=== PATIENT | female | born 1980 | race African-American/Black ===

== ENCOUNTER 2017-12-30 15:12 | Emergency (ER) | payer BC, OTHER ==
[~2017-12-30] VITALS: Ht 170.2 cm; Wt 98.4 kg
[2017-12-30 15:27] VITALS: BP 161/99
[2017-12-30 15:51] LABS: INFLUENZA A PATIENT NEGATIVE (NEGATIVE); INFLUENZA B PATIENT NEGATIVE (NEGATIVE)
[2017-12-30] MEDS ORDERED: OSEL75CA PO (16:03)
[2017-12-30] MEDS ORDERED: GUAI118L13 PO (16:03)
--- NOTE | 2017-12-30 16:05 | PHYS DOC ---
General Chief Complaint: FLU SYMPTOM Stated Complaint: COUGH, FEVER, BODYACHES Time Seen by MD: 15:22 Source: patient Exam Limitations: no limitations Problems: History of Present Illness Initial Comments Complaining of flulike symptoms. Patient states that since yesterday she's had a dry cough and intermittent fever chills and body aches. Her son was treated for influenza last week and she is thinking she is now infected. She denies sore throat or difficulty swallowing no chest pain or trouble breathing no nausea vomiting or diarrhea and no other focal pain complaints. She is febrile on arrival 103.2F heart rate initially 125 bpm appears to be related to fever. She denies chest pain or trouble breathing no leg swelling or history of clotting. Timing/Duration: 24 hours Severity: severe Modifying Factors: worse with movement, improves with rest Associated Symptoms: cough, fever/chills, headaches, malaise, other Allergies: Coded Allergies: levofloxacin (Verified Allergy, Intermediate, RASH, 12/30/17) Past Medical History Medical History: other (anxiety, migraines, lupus) Surgical History: no surgical history Social History Smoker: non-smoker Alcohol: none Drugs: none Review of Systems Constitutional: see HPI EENTM: nose congestion, throat pain, denies throat swelling Respiratory: cough, denies shortness of breath, denies wheezing Cardiovascular: denies chest pain, denies palpitations, denies syncope Gastrointestinal: denies abdominal pain, denies diarrhea, denies nausea, denies vomiting Musculoskeletal: denies back pain, denies joint swelling, muscle pain, denies neck pain Psychiatric/Neurological: headache, denies numbness, denies paresthesia, denies weakness Hematologic/Lymphatic: denies blood clots, denies easy bleeding, denies easy bruising Physical Exam General Appearance: mild distress (ill appearing) Eyes: bilateral eye normal inspection, bilateral eye PERRL, bilateral eye EOMI Ear, Nose, Throat: hearing grossly normal, normal ENT inspection, normal pharynx Neck: non-tender, supple Respiratory: normal breath sounds, no respiratory distress Cardiovascular: normal peripheral pulses, regular rate, rhythm (heart rate normalized after resting for a short time and fever control) Gastrointestinal: non tender, soft Back: no CVA tenderness, no vertebral tenderness Extremities: non-tender, normal inspection, no calf tenderness Neurologic/Psychiatric: knowledge architect II-XII nml as tested, no motor/sensory deficits, alert, normal mood/affect, oriented x 3 Skin: normal color, warm/dry Orders, Labs, Meds Influenza studies negative Due to the false-negative rate, patient's symptom complex and recent exposure I will go ahead and prescribed Tamiflu at this time. I discussed [id number] prescription medications as well as oral hydration and activity modification. I discussed signs and symptoms to monitor as well as indications for urgent return to the department. The patient's questions were answered to her satisfaction and she expressed agreement and understanding of treatment plan as below. Departure Time of Disposition: 16:03 Disposition: 01 HOME, SELF-CARE Diagnosis: Febrile Illness Condition: GOOD Patient Instructions: Fever, Adult, [id number] Additional Instructions: Rapid influenza testing was negative in the department however due to your recent exposure will treat with Tamiflu. Rest, no strenuous activity. Aggressive hydration with Gatorade or water. [id number] Tylenol and ibuprofen as needed. Prescription: Tamiflu, guaifenesin with codeine syrup Follow-up with your doctor in 7-10 days for recheck if not better. Return to ED with new or changing symptoms. VIRIDIANA CASTREJON DO Dec 30, 2017 16:05
[2017-12-30] MEDS ORDERED: IBUPROFEN 600 MG TABLET. PO ONE (16:30)
[2017-12-30] MEDS ORDERED: guaiFENesin/CODEINE 100mg/10mg 5 ML LIQUID PO ONE (16:30)
== END 2017-12-30 16:20 | disposition home or self-care (01) ==
LOC: ER 15:12
DX: R50.9 Fever, unspecified (principal); M79.1 Myalgia; G43.909 Migraine, unspecified, not intractable, without status migrainosus; Z88.1 Allergy status to other antibiotic agents
CPT/HCPCS: 87804; 99284

== ENCOUNTER 2018-07-14 14:30 | Emergency (ER) | payer OTHER ==
[~2018-07-14] VITALS: Ht 167.6 cm; Wt 100.7 kg
[~2018-07-14 14:30] MED LIST: GUAI118L13 PO; OSEL75CA PO
--- NOTE | 2018-07-14 14:43 | EKG ---
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
--- NOTE | 2018-07-14 14:54 | PHYS DOC ---
Past History Past Medical History: Anxiety, Migraines, Other Past Surgical History: No Surgical History Alcohol Use: None Drug Use: None Adult General Chief Complaint Chief Complaint: CHEST WALL PAIN HPI HPI Patient is a 37 year old female who presents with chest pain. Patient has a history of hypertension, diabetes, lupus and GERD who's had 2-3 days of substernal chest pain with radiation to the back. Patient states that she did see her primary care earlier this week for upper abdominal pain and was diagnosed with GI issues and started on Nexium. Patient states that this pain is somewhat different in that is somewhat higher with radiation to the back. She denies any nausea, vomiting or diarrhea and has no other acute complaints at this time. Patient states she is almost started for her high blood pressure and has been on it for years. Patient does see a lupus specialist every 6 months and states that there are no acute issues regarding that diagnosis and that she is on Plaquenil for that. Review of Systems Review of Systems Constitutional: Denies fever or chills [] Eyes: Denies change in visual acuity, redness, or eye pain [] HENT: Denies nasal congestion or sore throat [] Respiratory: Denies cough or shortness of breath [] Cardiovascular: No additional information not addressed in HPI [] GI: Denies abdominal pain, nausea, vomiting, bloody stools or diarrhea [] : Denies dysuria or hematuria [] Musculoskeletal: Denies back pain or joint pain [] Integument: Denies rash or skin lesions [] Neurologic: Denies headache, focal weakness or sensory changes [] Endocrine: Denies polyuria or polydipsia [] All other systems were reviewed and found to be within normal limits, except as documented in this note. Allergies Allergies Allergies Coded Allergies Type Severity Reaction Last Updated Verified levofloxacin Allergy Intermediate RASH 12/30/17 Yes Physical Exam Physical Exam Constitutional: Well developed, well nourished, no acute distress, non-toxic appearance. [] HENT: Normocephalic, atraumatic, bilateral external ears normal, oropharynx moist, no oral exudates, nose normal. [] Eyes: PERRLA, EOMI, conjunctiva normal, no discharge. [] Neck: Normal range of motion, no tenderness, supple, no stridor. [] Cardiovascular:Heart rate regular rhythm, no murmur [] Lungs & Thorax: Bilateral breath sounds clear to auscultation [] Abdomen: Bowel sounds normal, soft, no tenderness, no masses, no pulsatile masses. [] Skin: Warm, dry, no erythema, no rash. [] Back: No tenderness, no CVA tenderness. [] Extremities: No tenderness, no cyanosis, no clubbing, ROM intact, no edema. [] Neurologic: Alert and oriented X 3, normal motor function, normal sensory function, no focal deficits noted. [] Psychologic: Affect normal, judgement normal, mood normal. [] EKG EKG Sinus tach at a rate of 120[] Radiology/Procedures Radiology/Procedures [] Course & Med Decision Making Course & Med Decision Making Pertinent Labs and Imaging studies reviewed. (See chart for details) Patient with marked improvement with GI cocktail and clonidine. She is somewhat anxious but easily calms down with conversation [] Dragon Disclaimer Dragon Disclaimer This electronic medical record was generated, in whole or in part, using a voice recognition dictation system. Departure Departure: Impression: Primary Impression: Nonspecific chest pain Additional Impressions: Hypertension GERD (gastroesophageal reflux disease) Disposition: 01 HOME, SELF-CARE Condition: STABLE Referrals: MICKIE BROTHERS (PCP) Patient Instructions: Chest Pain (Nonspecific), Pqvy-jq-[id number] Problem Qualifiers MAITE TOLBERT MD Jul 14, 2018 14:54
[2018-07-14 15:08] LABS: BASO # 0.1 x10^3/uL (0.0-0.2); BASO % 1 % (0-3); EOS # 0.1 x10^3/uL (0.0-0.7); EOS % 1 % (0-3); HEMATOCRIT 38.7 % (36.0-47.0); HEMOGLOBIN 12.6 g/dL (12.0-15.5); LYMPH # 3.2 x10^3/uL (1.0-4.8); LYMPH % 36 % (24-48); MEAN CORPUSCULAR HEMOGLOBIN 25 pg (25-35); MEAN CORPUSCULAR HGB CONC 33 g/dL (31-37); MEAN CORPUSCULAR VOLUME 78 fL (79-100); MONO # 0.7 x10^3/uL (0.0-1.1); MONO % 7 % (0-9); NEUT % 56 % (31-73); PLATELET COUNT 315 x10^3/uL (140-400); RED BLOOD COUNT 4.96 x10^6/uL (3.50-5.40); RED CELL DISTRIBUTION WIDTH 16.3 % (11.5-14.5)
--- NOTE | 2018-07-14 15:21 | RAD ---
PORTABLE CHEST 1V Clinical indications: Chest wall pain for 1 day COMPARISON: None available. Findings: No acute lung infiltrate or pleural effusion or pulmonary edema or lung mass or pneumothorax is seen. The heart size, pulmonary vasculature, mediastinum and both mike are unremarkable. Impression: No acute radiographic abnormality is seen. Electronically signed by: Chino Ford MD (07/14/2018 3:17 PM) [facility] [place]
[2018-07-14 15:30] LABS: ALBUMIN 3.5 g/dL (3.4-5.0); ALBUMIN/GLOBULIN RATIO 0.6 (1.0-1.7); CALCIUM 9.4 mg/dL (8.5-10.1); GFR 75.9; POTASSIUM 3.4 mmol/L (3.5-5.1); TOTAL BILIRUBIN 0.3 mg/dL (0.2-1.0); TOTAL PROTEIN 8.9 g/dL (6.4-8.2)
[2018-07-14] MEDS ORDERED: cloNIDine HCL 0.1 MG TABLET PO ONE (15:30)
[2018-07-14 15:34] LABS: BACTERIA,URINE MOD /HPF (0-FEW); BILIRUBIN,URINE NEG (NEG); COLOR,URINE YELLOW; GLUCOSE,URINE NEG (NEG); NITRITE,URINE NEG (NEG); SQUAMOUS EPITHELIAL CELL,UR MOD /LPF; UROBILINOGEN,URINE 0.2 mg/dL (0.2 mg/dL)
[2018-07-14 15:35] LABS: CLARITY,URINE HAZY
[2018-07-14] MEDS ORDERED: LIDO:MAALOX 1:1 20 ML SINGLE DOSE. PO ONE (16:00)
[2018-07-14 16:31] VITALS: BP 130/83
== END 2018-07-14 16:40 | disposition home or self-care (01) ==
LOC: ER 14:30
DX: R07.2 Precordial pain (principal); I10 Essential (primary) hypertension; K21.9 Gastro-esophageal reflux disease without esophagitis; F41.9 Anxiety disorder, unspecified; G43.909 Migraine, unspecified, not intractable, without status migrainosus; Z88.1 Allergy status to other antibiotic agents
CPT/HCPCS: 36415; 71045; 80053; 81001; 82553; 83690; 84484; 85025; 93005; 99285-25

== ENCOUNTER → 2020-01-06 | Outpatient (CLI) | payer OTHER ==
[~2020-01-06] MED LIST changes: +IOHEXOL 240 MG/ML 50ML VIAL. ONE; +IOHEXOL 300 MG/ML 75 ML VIAL. IV ONE
--- NOTE | 2020-01-06 17:23 | RAD ---
Exam: CT abdomen and pelvis with contrast INDICATION: Left lower quadrant abdominal pain TECHNIQUE: Sequential axial images through the abdomen and pelvis obtained following the administration of 75 mL of Omni 300 IV contrast. Sagittal and coronal reformatted images were reconstructed from the axial data and reviewed. Comparisons: None FINDINGS: Heart size is normal. No pericardial effusion. Visualized lung bases are clear. No pleural effusion. Liver, spleen, pancreas, gallbladder and adrenals are unremarkable. Kidneys demonstrate symmetric enhancement. No perinephric inflammation or hydronephrosis. No renal or ureteral calculi are identified. Bladder is decompressed not well evaluated. Uterus is absent. No abnormal adnexal mass. Wall thickening at the sigmoid colon within inflamed diverticula noted. There is adjacent fat stranding. Remainder of the large and small bowel are unremarkable. Appendix is normal. Abdominal aorta has a normal course and caliber. Abdominal vasculature is patent. No enlarged intra-abdominal lymph nodes are identified. No suspicious osseous lesions or acute fractures. IMPRESSION: Findings of diverticulitis at the sigmoid colon. No evidence for perforation or adjacent abscess. Exposure: One or more of the following in the visualized dose reduction techniques were utilized for this examination: 1. Automated exposure control 2. Adjustment of the MA and/or KV according to patient size 3. Use of iterative of reconstructive technique Electronically signed by: Reva Villavicencio MD (01/06/2020 5:20 PM) [id number]
== END | disposition home or self-care (01) ==
LOC: CT 13:27
PROVIDERS: ATTEND Physician Assistant Medical
DX: R10.32 Left lower quadrant pain (principal)
CPT/HCPCS: 74177; Q9967

== ENCOUNTER → 2020-08-28 | Emergency (ER) | payer OTHER ==
[~2020-08-28] VITALS: Ht 162.6 cm; Wt 95.4 kg
[~2020-08-28] MED LIST changes: -IOHEXOL 240 MG/ML 50ML VIAL. ONE; -IOHEXOL 300 MG/ML 75 ML VIAL. IV ONE; +IV RINGERS SOLUTION,LACTATED 1,000 ML IV ONE; +METH-38 PO; +MORPHINE SULFATE 10 MG/ML SYRINGE. SQ ONE; +ORPHENADRINE CITRATE 60 MG/2 ML VIAL. IM ONE; +OXYC-325 PO
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
[2020-08-28 20:25] LABS: AMPHETAMINE/METHAMPHETAMINE NEG (NEG); BARBITURATES NEG (NEG); BENZODIAZEPINES NEG (NEG); CANNABINOIDS NEG (NEG); COCAINE NEG (NEG); METHADONE NEG (NEG); OPIATES POS (NEG); PHENCYCLIDINE NEG (NEG)
[2020-08-28 20:36] LABS: BACTERIA,URINE 0 /HPF (0-FEW); BILIRUBIN,URINE NEG (NEG); CLARITY,URINE HAZY; COLOR,URINE YELLOW; GLUCOSE,URINE NEG (NEG); NITRITE,URINE NEG (NEG); SQUAMOUS EPITHELIAL CELL,UR OCC /LPF; UROBILINOGEN,URINE 0.2 mg/dL (0.2 mg/dL)
[2020-08-29 16:45] VITALS: BP 140/94
== END ==
LOC: ER 17:10
DX: S83.91XA Sprain of unspecified site of right knee, initial encounter (principal); M54.2 Cervicalgia; R07.89 Other chest pain; I10 Essential (primary) hypertension; G43.909 Migraine, unspecified, not intractable, without status migrainosus; Z88.1 Allergy status to other antibiotic agents; V43.52XA Car driver injured in collision with other type car in traffic accident, initial encounter; Y93.89 Activity, other specified; Y92.89 Other specified places as the place of occurrence of the external cause; Y99.8 Other external cause status; E11.9 Type 2 diabetes mellitus without complications
CPT/HCPCS: 36415; 71046; 72125; 73564; 80307; 81001; 81025; 96372; 99285; J2270; J2360

== ENCOUNTER 2020-08-29 16:45 | Emergency (ER) | payer OTHER ==
[~2020-08-29] VITALS: Ht 162.6 cm; Wt 95.4 kg
[2020-08-29 16:45] VITALS: BP 140/94
[~2020-08-29 16:45] MED LIST changes: -IV RINGERS SOLUTION,LACTATED 1,000 ML IV ONE; -METH-38 PO; -MORPHINE SULFATE 10 MG/ML SYRINGE. SQ ONE; -ORPHENADRINE CITRATE 60 MG/2 ML VIAL. IM ONE
[2020-08-29] MEDS ORDERED: METH-38 PO (17:32)
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
== END 2020-08-29 18:48 | disposition home or self-care (01) ==
LOC: ER 16:45
DX: S33.5XXA Sprain of ligaments of lumbar spine, initial encounter (principal); E11.9 Type 2 diabetes mellitus without complications; I10 Essential (primary) hypertension; G43.909 Migraine, unspecified, not intractable, without status migrainosus; Z88.1 Allergy status to other antibiotic agents; V89.2XXA Person injured in unspecified motor-vehicle accident, traffic, initial encounter; Y93.89 Activity, other specified; Y92.89 Other specified places as the place of occurrence of the external cause; Y99.8 Other external cause status
CPT/HCPCS: 72100; 99283

== ENCOUNTER → 2021-11-01 | Outpatient (CLI) | payer OTHER ==
[~2021-11-01] MED LIST changes: +METH-38 PO
--- NOTE | 2021-11-02 12:35 | RAD ---
XR KNEE_AP BILAT STANDING, XR KNEE_RT 1-2 VIEWS History: Reason: / Spl. Instructions: / History: Pain Technique: Standing AP view bilateral knees and 2 additional views of the right knee. Comparison: None. Findings: Mild right medial compartment degenerative changes. Genu valgus alignment of the right knee. No signi ficant joint effusion. Mild patellar spurring. Mild left knee medial compartment joint space narrowin g. Sclerotic lesion within the proximal tibia measures 1.3 cm, may represent bone island or nonossifying fibroma. Impression: 1. 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 Electronically signed by: Horacio Quiles DO (11/02/2021 12:33 PM) [id number]
== END ==
LOC: RAD 14:06
PROVIDERS: ATTEND Physician Assistant
DX: M17.11 Unilateral primary osteoarthritis, right knee (principal); M21.061 Valgus deformity, not elsewhere classified, right knee
CPT/HCPCS: 73560; 73565